=== PATIENT | female | born 2000 | race African-American/Black ===

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

== ENCOUNTER 2022-02-25 13:18 | Emergency (ER) | payer OTHER, BC, SELFPAY ==
[2022-02-25 13:41] VITALS: BP 113/69; PULSE 111; RESP 14; TEMP 36.6; O2SAT 98; BMI 26.2
--- NOTE | 2022-02-25 14:04 | DI.RAD.S_ITS ---
PROCEDURE: XR CHEST 2V INDICATIONS: coughing up blood TECHNIQUE: 2 views of the chest were acquired. COMPARISON: None. FINDINGS: Surgical changes and devices: None. Lungs and pleura: Lungs are clear. No pleural effusions or pneumothorax. Mediastinum: Mediastinal contours are normal. Heart size is normal. Bones and chest wall: No suspicious bony abnormalities. Soft tissues appear unremarkable. IMPRESSION: No acute pulmonary process. Dictated by: Charity Mirza M.D. on 02/25/2022 at 14:47 Approved by: Charity Mirza M.D. on 02/25/2022 at 14:47
[2022-02-25 14:31] LABS: Add Manual Diff / Slide Review NO; Basophils Absolute Auto 100 /uL (0-100); Basophils Percent Auto 1.4 % (0-2); Eosinophils Absolute Auto 300 /uL (0-450); Eosinophils Percent Auto 4.9 % (2-4); Hematocrit 37.8 % (36-46); Hemoglobin 12.4 g/dL (12.0-16.0); Lymphocytes Absolute Auto 1800 /uL (1100-4500); Lymphocytes Percent Auto 26.1 % (25-40); Mean Corpuscular HGB Conc 32.9 % (30-36); Mean Corpuscular Hemoglobin 28.4 PG (26-34); Mean Corpuscular Volume 86.6 fL (80-100); Monocytes Absolute Auto 500 /uL (0-900); Monocytes Percent Auto 7.5 % (3-14); Neutrophils Absolute Auto 4100 /uL (1500-7000); Neutrophils Percent Auto 60.1 % (50-75); Platelet Count 317 X10^3/uL (150-400); Red Blood Cell Count 4.37 X10^6/uL (4.0-5.2); Red Cell Distribution Width 13.5 % (11.6-14.8); White Blood Cell Count 6.8 X10^3/uL (4.5-11.0)
[2022-02-25 14:43] LABS: Alanine Aminotransferase 12 IU/L (<35); Albumin 4.3 g/dL (3.5-5.0); Albumin Globulin Ratio 1.1 (1.0-2.8); Alkaline Phosphatase 72 U/L (38-126); Aspartate Aminotransferase 23 IU/L (14-36); BUN Creatinine Ratio 15.1 (6-22); Bilirubin Total 0.1 mg/dL (0.2-1.3); Blood Urea Nitrogen 13 mg/dL (7-17); Calcium 8.8 mg/dL (8.4-10.2); Carbon Dioxide 22 mmol/L (22-32); Chloride 107 mmol/L (98-107); Estimated Glomerular Filt Rate > 60 mL/min (>60); Glucose 89 mg/dL (70-100); HEMOLYSIS < 15 (0-50); Sodium 142 mmol/L (137-145); Total Protein 8.3 g/dL (6.3-8.2)
--- NOTE | 2022-02-25 16:40 | ED_ITS ---
HPI - URI/Sore Throat General Chief Complaint: Upper Respiratory Symptoms Stated Complaint: coughing up blood Time Seen by Provider: 02/25/22 16:18 Source: patient Mode of arrival: Ambulatory History of Present Illness HPI Narrative: Patient is a 21-year-old female who presents to the ED reporting she is had some coughing of blood for the past day. She states that it has been coming out of her nose and she is coughed up large amounts of blood and she is coughed up some blood clots. 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 She is had this episode in the past but it was months ago and she had EGD done which in reviewing those records appears that it was negative for peptic ulcer disease or H pylori. There was some erosive esophagitis and mild gastritis but based on her symptoms today do not think it is likely a result of this finding. She denies any abdominal pain or epigastric pain or any chest pain. She denies any fever cough shortness of breath. Bleeding is controlled and no reported active bleeding this point. She does have some occasional blood on the tissue when she does blow her nose. Related Data Home Medications Medication Instructions Recorded Confirmed albuterol sulfate 90 mcg/actuation 1 inh inhalation PRN PRN Adequate 10/21/21 10/21/21 aerosol inhaler (ProAir HFA) Ventilation fidaxomicin 200 mg tablet (Dificid) 1 tab BID 10/21/21 10/21/21 Allergies Allergy/AdvReac Type Severity Reaction Status Date / Time No Known Drug Allergies Allergy Verified 02/25/22 13:41 Review of Systems Review of Systems ROS Unobtainable: All systems reviewed & are unremarkable except as noted in HPI and below Constitutional Constitutional: Denies chills, Denies fatigue, Denies fever(s), Denies frequent falls, Denies lethargy and Denies weakness Eyes Eyes: Denies change in vision, Denies eye discharge, Denies irritation and Denies loss of vision ENT Ears, Nose, Mouth, and Throat: Denies change in voice, Denies dizziness, Reports epistaxis, Denies neck pain, Denies sore throat and Denies throat swelling Cardiovascular Cardiovascular: Denies chest pain, Denies irregular heart rhythm, Denies lightheadedness, Denies palpitations, Denies dyspnea, Denies dyspnea on exertion and Denies orthopnea Respiratory Respiratory: Denies cough, Denies dyspnea, Denies dyspnea on exertion and Denies wheezing Gastrointestinal Gastrointestinal: Denies abdominal pain, Denies change in bowel habits, Denies diarrhea, Denies nausea and Denies vomiting Genitourinary Genitourinary: Denies hematuria, Denies flank pain, Denies urinary incontinence and Denies urinary urgency Musculoskeletal Musculoskeletal: Denies back pain, Denies muscle weakness, Denies neck pain, Denies numbness and Denies tingling Integumentary/Breasts Skin/Breast: Denies pruritus, Denies erythema, Denies rash and Denies wounds Neurologic Neurologic: Denies behavioral changes, Denies confusion, Denies dizziness, Denies frequent falls, Denies loss of vision, Denies numbness, Denies tingling and Denies weakness Psychiatric Psychiatric: Denies anxiety, Denies behavioral changes, Denies confusion, Denies depression, Denies homicidal ideation and Denies suicidal ideation Endocrine Endocrine: Denies fatigue, Denies flushing and Denies palpitations Hematologic/Lymphatic Hematologic/Lymphatic: Denies easy bruising Allergic/Immunologic Allergic/Immunologic: Denies urticaria, Denies throat swelling and Denies wheezing Patient History Social History Smoking Status: Former smoker alcohol intake: never Smoking Status: Former smoker alcohol intake frequency: holidays/special occasions only Substance Use Type: does not use Exam Initial Vital Signs Initial Vital Signs: Vital Signs Temperature 97.8 F 02/25/22 13:41 Pulse Rate 111 H 02/25/22 13:41 Respiratory Rate 14 02/25/22 13:41 Blood Pressure 113/69 02/25/22 13:41 Pulse Oximetry 98 02/25/22 13:41 Oxygen Delivery Method 02/25/22 13:41 [facility] Head: normal to inspection, normocephalic and atraumatic Ears: hearing grossly normal bilaterally, external ears normal and TM's normal bilaterally Nose: external nose normal and mucous membranes and turbinates abnormal (Visualized small abrasions in the posterior turbinates) Face and sinus: normal facial exam, sinuses nontender and face symmetric Mouth: oral mucosae normal and lip normal Teeth and gingiva: dentition normal and gingiva normal Throat: posterior oropharynx normal, tonsils normal and uvula midline Neck Neck: normal visual inspection, full ROM and no meningeal signs Resp Effort & Inspection: normal respiratory effort and able to speak in complete sentences Auscultation: clear to auscultation bilaterally GI Inspection: normal to inspection Palpation: soft and no hepatosplenomegaly Percussion: normal to percussion Auscultation: normal bowel sounds Course Orders Ordered: ED Orders 02/25/22 14:04 Chest [XR chest 2V] Stat 02/25/22 14:20 Complete Blood Count AUTO DIFF Stat Comprehensive Metabolic Panel Stat Type and Screen Stat Vital Signs Vital signs: Vital Signs - 8 hr 02/25/22 13:41 Temperature 97.8 F Pulse Rate 111 H Respiratory Rate 14 Blood Pressure 113/69 Pulse Oximetry 98 Oxygen Delivery Method Room Air MDM - URI/Sore Throat Lab Data Result diagrams: 02/25/22 14:20 02/25/22 14:20 Labs: Lab Results 02/25/22 02/25/22 02/25/22 Range/Units 14:20 14:20 14:20 WBC 6.8 (4.5-11.0) X10^3/uL RBC 4.37 (4.0-5.2) X10^6/uL Hgb 12.4 (12.0-16.0) g/dL Hct 37.8 (36-46) % MCV 86.6 (80-100) fL MCH 28.4 (26-34) PG MCHC 32.9 (30-36) % RDW 13.5 (11.6-14.8) % Plt Count 317 (150-400) X10^3/uL Neut % (Auto) 60.1 (50-75) % Lymph % (Auto) 26.1 (25-40) % [place] % (Auto) 7.5 (3-14) % Eos % (Auto) 4.9 H (2-4) % Baso % (Auto) 1.4 (0-2) % Neut # (Auto) 4100 (9875-4621) /uL Lymph # (Auto) 1800 (8317-6450) /uL [place] # (Auto) 500 (0-900) /uL Eos # (Auto) 300 (0-450) /uL Baso # (Auto) 100 (0-100) /uL Sodium 142 (137-145) mmol/L Potassium 4.0 (3.4-5.1) mmol/L Chloride 107 (98-107) mmol/L Carbon Dioxide 22 (22-32) mmol/L BUN 13 (7-17) mg/dL Creatinine 0.86 (0.52-1.04) mg/dL Estimated GFR > 60 (>60) mL/min BUN/Creatinine Ratio 15.1 (6-22) Glucose 89 (70-100) mg/dL Calcium 8.8 (8.4-10.2) mg/dL Total Bilirubin 0.1 L (0.2-1.3) mg/dL AST 23 (14-36) IU/L ALT 12 (<35) IU/L Alkaline Phosphatase 72 (38-126) U/L Total Protein 8.3 H (6.3-8.2) g/dL Albumin 4.3 (3.5-5.0) g/dL Globulin 4.0 (1.7-4.1) g/dL Albumin/Globulin Ratio 1.1 (1.0-2.8) Blood Type A Positive Antibody Screen Negative MDM Narrative Medical decision making narrative: Patient was seen today for bleeding from the upper respiratory region. She states that she is had some amounts of blood in her nose and mouth and she denies any epigastric pain. I explained to her that I think likely this is result of possibly a posterior turbinate that has been abraded either from ongoing allergies or some other reason. I suggested that she follow-up with an research laboratory specialist for further evaluation. I did recommend some saline nasal spray in the meantime and that if she does have a nosebleed that she can packet with Kleenex and apply pressure to alleviate. I did also advise her to not blow her nose or try not to sneeze and as result she can take some allergy medication to help with that. Patient will be discharged home. Discharge Plan Departure Patient Disposition: Home Clinical Impression: Epistaxis Instructions: DI for Nosebleed Activity Restrictions/Additional Instructions: You were seen today for bleeding which I suspect is probably coming from the back part your nose. Saline nasal spray can help to keep her nose moisturized and I would try to avoid any heavy blowing of her nose or any sneezing. If the nosebleed does return you can apply direct pressure insert a tampon into your nose or a large amount of Kleenex and apply pressure. If the bleeding continues or you are not able to get any control you can return back to the ED. As result I would have you follow-up with an research laboratory specialist for further evaluation. Thank you for the opportunity to care for you today. Prescriptions: No Action albuterol sulfate [ProAir HFA] 90 mcg/actuation HFA aerosol inhaler 1 inh INHALATION PRN PRN (Reason: Adequate Ventilation) Dificid 200 mg tablet 1 tab BID Label Comments: for cdiff
--- NOTE | 2022-02-25 17:00 | PC.NURSE ---
Assessed by MD without RN involvement
== END 2022-02-25 17:00 | disposition home or self-care (01) ==
PROVIDERS: Emergency Provider Physician Assistant
DX: R04.0 Epistaxis (principal)
CPT/HCPCS: 71046; 80053; 85025; 86850; 86900; 86901; 99281; 99283

== ENCOUNTER 2023-02-11 07:48 | Emergency (ER) | payer OTHER, BC, SELFPAY ==
[2023-02-11 07:51] VITALS: BP 115/56; PULSE 99; RESP 18; TEMP 36.4; O2SAT 99; BMI 26.6
--- NOTE | 2023-02-11 08:15 | PC.NURSE ---
0810: pt called from waiting area. friend advised she is in bathroom 0815: out to waiting area to bring patient to room, pt still in bathroom.
--- NOTE | 2023-02-11 08:42 | ED.URI ---
HPI - URI/Sore Throat General Chief Complaint: Upper Respiratory Symptoms Stated Complaint: body ache/chills/headache Time Seen by Provider: 02/11/23 08:23 Source: patient Mode of arrival: Ambulatory Limitations: no limitations History of Present Illness HPI Narrative: The patient has been ill for about 2.5 days. She is headache, sinus pressure, and sore throat. She is occasional, nonproductive cough. She is no difficulty swallowing, but her appetite is decreased. She is slight upper abdominal discomfort. She is no nausea or vomiting. She is hydrating. She is no urinary complaints. She is no rashes. She vapes. She is no history of asthma or allergies. She is taken ibuprofen for the body aches and headaches. Her last dose was about 3:00 a.m.. She is in the . Related Data Home Medications Medication Instructions Recorded Confirmed albuterol sulfate 90 mcg/actuation 1 inh inhalation PRN PRN Adequate 10/21/21 10/21/21 aerosol inhaler (ProAir HFA) Ventilation fidaxomicin 200 mg tablet (Dificid) 1 tab BID 10/21/21 10/21/21 Allergies Allergy/AdvReac Type Severity Reaction Status Date / Time No Known Drug Allergies Allergy Verified 02/11/23 07:51 Review of Systems Constitutional Constitutional: Reports body ache(s), Reports fatigue, Denies fever(s) and Reports headache(s) Eyes Eyes: Denies blurry vision, Denies irritation and Denies itchy eyes ENT Ears, Nose, Mouth, and Throat: Denies dizziness, Reports headache(s), Reports nasal congestion, Denies neck pain, Reports sinus pressure and Reports sore throat Cardiovascular Cardiovascular: Denies chest pain and Denies dyspnea Respiratory Respiratory: Reports cough and Denies dyspnea Gastrointestinal Gastrointestinal: Reports as per HPI and Reports abdominal pain Comments: Decreased appetite. Genitourinary Genitourinary: Denies dysuria Musculoskeletal Musculoskeletal: Reports myalgias, Reports myalgias and Denies neck pain Integumentary/Breasts Skin/Breast: Denies rash Neurologic Neurologic: Denies confusion, Denies dizziness and Reports headache(s) Comments: Headache Psychiatric Psychiatric: Denies confusion Endocrine Endocrine: Reports fatigue Allergic/Immunologic Allergic/Immunologic: Denies itchy eyes Patient History Medical History (Updated 02/11/23 @ 09:14 by Naveen Sanford MD) Healthy adult Social History Smoking Status: Former smoker alcohol intake: never Smoking Status: Former smoker alcohol intake frequency: holidays/special occasions only Substance Use Type: does not use Exam Initial Vital Signs Initial Vital Signs: Vital Signs Temperature 97.6 F 02/11/23 07:51 Pulse Rate 99 H 02/11/23 07:51 Respiratory Rate 18 02/11/23 07:51 Blood Pressure 115/56 L 02/11/23 07:51 Pulse Oximetry 99 02/11/23 07:51 Oxygen Delivery Method Room Air 02/11/23 07:51 Const General: cooperative, healthy appearing and comfortable HENMT Head: normal to inspection, normocephalic and atraumatic Nose: nares normal Face and sinus: normal facial exam and sinuses nontender Mouth: oral mucosae normal and oropharynx normal Eyes General: Yes appearance normal, both eyes and all related structures Neck Neck: normal visual inspection, no meningeal signs and No lymphadenopathy Resp Auscultation: clear to auscultation bilaterally Cardio Rate: regular rate Rhythm: regular rhythm Heart Sounds: S1 normal and S2 normal GI Palpation: soft and No tender Auscultation: normal bowel sounds Back/Spine/Pelvis Back: No CVA tenderness Skin General: no rashes or lesions noted Neuro General: patient alert, patient awake and patient oriented x3 Extrem General: normal to inspection and full ROM Psych Appearance: grossly normal Course Orders Ordered: Discontinued Medications Acetaminophen (Acetaminophen 325 Mg Tablet) 650 mg PO NOW ONE Stop: 02/11/23 08:46 Last Admin: 02/11/23 08:59 Dose: 650 mg Documented By: CTS Vital Signs Vital signs: Vital Signs - 8 hr 02/11/23 07:51 Temperature 97.6 F Pulse Rate 99 H Respiratory Rate 18 Blood Pressure 115/56 L Pulse Oximetry 99 Oxygen Delivery Method Room Air MDM - URI/Sore Throat Medical Records Medical records narrative: Patient is a healthy 22-year-old female, she presents with 2+ days of URI type symptoms. She is not received COVID-19 vaccines, or influenza immunizations this fall. Times consistent with URI. COVID-19 and influenza testing is negative. Her lungs are clear. She appears to have a common head cold. She will be given discharge instructions for rest, hydration. She should be allowed to days off work. Lab Data Labs: Lab Results 02/11/23 Range/Units 07:59 SARS-CoV-2 (PCR) Negative (Negative) Influenza A (RT-PCR) Flu a negative (NEGATIVE) Influenza B (RT-PCR) Flu b negative (NEGATIVE) RSV (PCR) Negative (Negative) Discharge Plan Departure Patient Disposition: Home Clinical Impression: Upper respiratory infection, viral Instructions: Common Cold Activity Restrictions/Additional Instructions: Testing for COVID-19 and influenza is negative. You appear to have a common head cold. I would suggest Tylenol or Advil as needed for headache, or body aches. Rest, assure good hydration all times. Mucinex is available [id number], this may help with sinus congestion. No work for the next 2 days. Follow-up with your doctor or return here if symptoms worsen. Prescriptions: No Action albuterol sulfate [ProAir HFA] 90 mcg/actuation HFA aerosol inhaler 1 inh INHALATION PRN PRN (Reason: Adequate Ventilation) Dificid 200 mg tablet 1 tab BID Patient Comments: for cdiff Referrals: ProviderIvan [Primary Care Provider] - Stand Alone Forms: Patient Portal/API, Work Release Note
[2023-02-11 08:44] LABS: COVID-19 CEPHEID 4-PLEX PCR Negative (Negative); Influenza A - CEPHEID Flu A NEGATIVE (NEGATIVE); Influenza B - CEPHEID Flu B NEGATIVE (NEGATIVE); Respiratory Syncytial Virus Negative (Negative)
[2023-02-11] MEDS: ACETAMINOPHEN 325 MG TABLET 650 MG PO (08:59)
[2023-02-11 09:23] VITALS: BP 110/59; PULSE 74; O2SAT 99
== END 2023-02-11 09:25 | disposition home or self-care (01) ==
PROVIDERS: Emergency Provider Emergency Medicine
DX: J06.9 Acute upper respiratory infection, unspecified (principal); Z20.822 Contact with and (suspected) exposure to COVID-19
CPT/HCPCS: 0241U; 99282; 99283

== ENCOUNTER 2023-12-01 01:35 | Emergency (ER) | payer OTHER, SELFPAY ==
[2023-12-01] VITALS (8 sets, daily range): BP systolic 94–114; BP diastolic 55–73; PULSE 58–84; RESP 16; TEMP 36.1; O2SAT 98–100; BMI 27.9
--- NOTE | 2023-12-01 08:50 | ED.ABDPAIN ---
HPI - Abdominal Pain General Chief Complaint: Abdominal Pain Stated Complaint: ABD PAIN Time Seen by Provider: 12/01/23 08:43 Source: patient Mode of arrival: Ambulatory History of Present Illness HPI narrative: 23-year-old female presents for generalized abdominal cramping that has now localized to the left lower quadrant. Patient states that she thinks she was constipated. Normally has infrequent bowel movements, last bowel movement was 2 days ago. Associated nausea. Denies history of intra-abdominal surgeries. Denies other complaints at this time. Related Data Home Medications Medication Instructions Recorded Confirmed albuterol sulfate 90 mcg/actuation 1 inh inhalation PRN PRN Adequate 10/21/21 10/21/21 aerosol inhaler (ProAir HFA) Ventilation fidaxomicin 200 mg tablet (Dificid) 1 tab BID 10/21/21 10/21/21 Previous Rx's Medication Instructions Recorded ondansetron 4 mg disintegrating 4 mg PO Q8H PRN nausea and 12/01/23 tablet vomiting #30 tabs Allergies Allergy/AdvReac Type Severity Reaction Status Date / Time No Known Drug Allergies Allergy Verified 02/11/23 07:51 Patient History Medical History Healthy adult Social History Smoking Status: Current every day smoker alcohol intake: never Smoking Status: Current every day smoker tobacco type: vaping alcohol intake frequency: a few times a month Substance Use Type: does not use Exam Initial Vital Signs Initial Vital Signs: Vital Signs Temperature 97 F L 12/01/23 01:49 Pulse Rate 72 12/01/23 01:49 Respiratory Rate 16 12/01/23 01:49 Blood Pressure 106/55 L 12/01/23 01:49 Pulse Oximetry 98 12/01/23 01:49 Oxygen Delivery Method Room Air 12/01/23 01:49 Const: Awake, alert, no acute distress, nontoxic appearing Cardiac: regular rate, regular rhythm RESP: unlabored, clear bilaterally, no wheezing GI: Soft, nontender, nondistended, no rebound, no guarding Skin: Warm, Dry, intact, no rashes Neuro: AO x3, CN II-XII grossly intact, moves all extremities Course Orders Ordered: Discontinued Medications Sodium Chloride (Normal Saline 0.9%) 1,000 mls @ 1,000 mls/hr IV BOLUS ONE Stop: 12/01/23 09:48 Last Infusion: 12/01/23 10:12 Dose: Infused Documented By: Admin: 12/01/23 09:14 Dose: 1,000 mls/hr Documented By: Ondansetron HCl (Ondansetron 4 Mg/2 Ml Inj) 4 mg IV NOW PRN PRN Reason: Nausea And Vomiting Ondansetron HCl (Ondansetron 4 Mg Odt) 4 mg PO NOW PRN PRN Reason: Nausea And Vomiting Ondansetron HCl (Ondansetron 4 Mg/2 Ml Inj) 4 mg IV NOW ONE Stop: 12/01/23 08:50 Last Admin: 12/01/23 09:14 Dose: 4 mg Documented By: Polyethylene Glycol/Electrolytes ([id number]/Sod Sulf,Bicarb,Cl/Kcl 4,000 Ml Solution) 4,000 ml PO NOW ONE Stop: 12/01/23 09:40 Last Admin: 12/01/23 10:08 Dose: 4,000 ml Documented By: DELMAR Vital Signs Vital signs: Vital Signs - 8 hr 12/01/23 08:40 12/01/23 08:42 12/01/23 08:42 Pulse Rate 84 72 Blood Pressure 114/56 L Pulse Oximetry 100 100 Oxygen Delivery Method 12/01/23 09:04 12/01/23 09:10 12/01/23 09:10 Pulse Rate 76 74 Blood Pressure 113/73 Pulse Oximetry 98 100 Oxygen Delivery Method Room Air 12/01/23 09:30 12/01/23 09:30 Pulse Rate 58 L Blood Pressure 94/56 L Pulse Oximetry 99 Oxygen Delivery Method MDM - Abdominal Pain Differential Diagnosis Differential diagnosis: Likely abdominal pain, constipation and gastroenteritis Lab Data 12/01/23 09:25 12/01/23 09:25 Labs: Lab Results 12/01/23 12/01/23 Range/Units 09:00 09:25 WBC 8.0 (4.5-11.0) X10^3/uL RBC 4.08 (4.0-5.2) X10^6/uL Hgb 11.9 L (12.0-16.0) g/dL Hct 35.7 L (36-46) % MCV 87.4 (80-100) fL MCH 29.2 (26-34) PG MCHC 33.4 (30-36) % RDW 13.6 (11.6-14.8) % Plt Count 342 (150-400) X10^3/uL Neut % (Auto) 66.4 (50-75) % Lymph % (Auto) 23.7 L (25-40) % [place] % (Auto) 7.7 (3-14) % Eos % (Auto) 1.4 L (2-4) % Baso % (Auto) 0.8 (0-2) % Neut # (Auto) 5300 (7160-4874) /uL Lymph # (Auto) 1900 (8692-6009) /uL [place] # (Auto) 600 (0-900) /uL Eos # (Auto) 100 (0-450) /uL Baso # (Auto) 100 (0-100) /uL Sodium 139 (137-145) mmol/L Potassium 3.7 (3.4-5.1) mmol/L Chloride 107 (98-107) mmol/L Carbon Dioxide 22 (22-32) mmol/L BUN 9 (7-17) mg/dL Creatinine 0.64 (0.52-1.04) mg/dL Estimated GFR > 60 (>60) mL/min BUN/Creatinine Ratio 14.1 (6-22) Glucose 97 (70-100) mg/dL Calcium 8.8 (8.4-10.2) mg/dL Total Bilirubin 0.6 (0.2-1.3) mg/dL AST 108 H (14-36) IU/L ALT 49 H (<35) IU/L Alkaline Phosphatase 66 (38-126) U/L Total Protein 7.8 (6.3-8.2) g/dL Albumin 4.3 (3.5-5.0) g/dL Globulin 3.5 (1.7-4.1) g/dL Albumin/Globulin Ratio 1.2 (1.0-2.8) Lipase 56 (23-300) U/L Urine RBC 5-10/hpf H (0-5/HPF) Urine WBC 5-10/hpf H (0-5/HPF) Ur Squamous Epith Cells >30 /hpf H D (0-5/HPF) Urine Bacteria Few (2-10) H (None) Ur Culture Indicated? Cult not indicated Vol Urine Centrifuged 10ml (spun) Point of care testing: Point of Care Testing Test Results Negative Urine Dip Bedside Urine Glucose Negative Bedside Urine Bilirubin - Negative Bedside Urine Ketone - Negative Urine Specific [place] 1.020 Bedside Urine Occult Blood ++ Bedside Urine pH 6.0 Bedside Urine Protein - Negative Bedside Urine Urobilinogen - Negative Bedside Urine Nitrite - Negative Bedside Urine Leukocytes - Negative Esterase Imaging Data Abdominal x-ray: Radiologist's Impression: PROCEDURE: XR KUB INDICATIONS: LLQ PAIN, HX CONSTIPATION TECHNIQUE: One view of the abdomen acquired. COMPARISON: None. FINDINGS: Surgical changes and devices: None. Bowel: Bowel gas pattern is normal. Moderate to large volume of stool in the right colon and transverse colon. Soft tissues: No suspicious abdominal calcifications. Visualized solid organ contours appear normal in size. Bones: No suspicious bony lesions. IMPRESSION: Moderate to severe right and transverse colonic fecal loading. Dictated by: Rosario Hess MD, PhD on 12/01/2023 at 9:31 Approved by: Rosario Hess MD, PhD on 12/01/2023 at 9:31 [facility] Narrative Medical decision making narrative: One day of abdominal pain and nausea. Abdomen soft, no significant tenderness to light or deep palpation. KUB shows moderate to severe stool burden, particularly in the transverse and right-hand sides. Laboratory work is fairly unremarkable, mild elevation in liver enzymes. Patient states that she did have quite a bit of alcohol to drink over the weekend, this could be related. Patient informed of lab and imaging findings, recommended close PCP follow up. Gal of GoLYTELY sent with the patient for bowel regimen Discharge Plan Departure Patient Disposition: Home Clinical Impression: Abdominal pain, Constipation, Elevated liver enzymes Instructions: DI for Constipation Activity Restrictions/Additional Instructions: Your laboratory work today showed a mild elevation in liver enzymes, which can happen in the setting of alcohol use. Your other laboratory work was normal. Follow up with your primary care doctor about your liver enzymes. Your x-ray showed a very heavy stool burden, especially in your right colon. At home drink 8 oz of the GoLYTELY 2-3 times per day until you have a bowel movement. Afterwards I recommend a daily stool softener such as MiraLax to help keep your bowel movements regular. Nausea medication has been sent to the [facility] in [place] Prescriptions: New ondansetron 4 mg tablet,disintegrating 4 mg PO Q8H PRN (Reason: nausea and vomiting) Qty: 30 0RF No Action albuterol sulfate [ProAir HFA] 90 mcg/actuation HFA aerosol inhaler 1 inh INHALATION PRN PRN (Reason: Adequate Ventilation) Dificid 200 mg tablet 1 tab BID Patient Comments: for cdiff Referrals: ProviderIvan [Primary Care Provider] - Stand Alone Forms: Patient Portal/API, Work Release Note
[2023-12-01] MEDS: ONDANSETRON 4 MG/2 ML INJ IV (09:14)
[2023-12-01] MEDS: SODIUM CHLORIDE 0.9% 1,000 ML 1000 ML IV (09:14)
[2023-12-01 09:34] LABS: Add Manual Diff / Slide Review NO; Basophils Absolute Auto 100 /uL (0-100); Basophils Percent Auto 0.8 % (0-2); Eosinophils Absolute Auto 100 /uL (0-450); Eosinophils Percent Auto 1.4 % (2-4); Hematocrit 35.7 % (36-46); Hemoglobin 11.9 g/dL (12.0-16.0); Lymphocytes Absolute Auto 1900 /uL (1100-4500); Lymphocytes Percent Auto 23.7 % (25-40); Mean Corpuscular HGB Conc 33.4 % (30-36); Mean Corpuscular Hemoglobin 29.2 PG (26-34); Mean Corpuscular Volume 87.4 fL (80-100); Monocytes Absolute Auto 600 /uL (0-900); Monocytes Percent Auto 7.7 % (3-14); Neutrophils Absolute Auto 5300 /uL (1500-7000); Neutrophils Percent Auto 66.4 % (50-75); Platelet Count 342 X10^3/uL (150-400); Red Blood Cell Count 4.08 X10^6/uL (4.0-5.2); Red Cell Distribution Width 13.6 % (11.6-14.8)
[2023-12-01 09:53] LABS: Alanine Aminotransferase 49 IU/L (<35); Albumin 4.3 g/dL (3.5-5.0); Albumin Globulin Ratio 1.2 (1.0-2.8); Alkaline Phosphatase 66 U/L (38-126); Aspartate Aminotransferase 108 IU/L (14-36); BUN Creatinine Ratio 14.1 (6-22); Bilirubin Total 0.6 mg/dL (0.2-1.3); Blood Urea Nitrogen 9 mg/dL (7-17); Calcium 8.8 mg/dL (8.4-10.2); Carbon Dioxide 22 mmol/L (22-32); Chloride 107 mmol/L (98-107); Estimated Glomerular Filt Rate > 60 mL/min (>60); Globulin 3.5 g/dL (1.7-4.1); Glucose 97 mg/dL (70-100); HEMOLYSIS < 15 (0-50); Lipase 56 U/L (23-300); Potassium 3.7 mmol/L (3.4-5.1); Sodium 139 mmol/L (137-145); Total Protein 7.8 g/dL (6.3-8.2)
[2023-12-01] MEDS: PEG3350/SOD SULF,BICARB,CL/KCL 4,000 ML SOLUTION 4000 ML PO (10:08)
[2023-12-01 10:28] LABS: Urine Volume 10mL (spun)
[2023-12-01 10:29] LABS: Bacteria Urine Few (2-10); Culture Indicated Urine Cult Not Indicated; RBC Urine 5-10/HPF (0-5/HPF); Squamous Epithelial Cell Urine >30 /HPF (0-5/HPF); WBC Urine 5-10/HPF (0-5/HPF)
== END 2023-12-01 10:19 | disposition home or self-care (01) ==
PROVIDERS: Emergency Medicine; Emergency Provider Emergency Medicine
DX: R10.32 Left lower quadrant pain (principal); K59.00 Constipation, unspecified; R74.8 Abnormal levels of other serum enzymes
CPT/HCPCS: 36415; 74018; 80053; 81003; 81015; 81025; 83690; 85025; 96361; 96374; 99284; J2405